=== PATIENT | female | born 1965 | race Caucasian/White ===

== ENCOUNTER 2017-02-15 16:50 | Emergency (ER) | payer SELFPAY ==
[~2017-02-15] VITALS: Ht 160 cm; Wt 101.7 kg
[~2017-02-15 16:50] MED LIST: LACT10SO9 PO; NA P133E23 RECTALLY; OMEP20TA2 PO; ONDA4TAB7 PO; OXYC10TA51 PO; SIME80TA12 PO; VENL150C2 PO; ZOLP10TA2 PO
--- OUTSIDE RECORDS SUMMARY | 2017-02-15 16:54 | XMS REPORT ---
Author Author Irene Souza [facility] eClinicalWorks Address Unknown Phone Unavailable Care Team Providers Care Timber Management Specialist Name Role Phone Irene Souza Unavailable Allergies No Known Allergies Problems Problem Type Condition Code Onset Dates Condition Status Assessment Insomnia, unspecified type G47.00 Active Assessment Abdominal distension R14.0 Active Assessment Restless leg syndrome, controlled G25.81 Active Assessment Cigarette smoker F17.210 Active Assessment Constipation, unspecified constipation type K59.00 Active Problem Constipation, unspecified constipation type K59.00 Active Problem Insomnia, unspecified type G47.00 Active Problem Restless leg syndrome, controlled G25.81 Active Problem Cigarette smoker F17.210 Active Assessment Chronic active hepatitis C K73.2 Active Problem Chronic active hepatitis C K73.2 Active Problem Abdominal distension R14.0 Active Medications Medication Code System Code Instructions Start Date End Date Status Dosage Vicoprofen [facility] [address]-42 7.5-200 MG Orally every 6 hrs 1 tablet as needed Harvoni [facility] [address]-92 90-400 MG Orally Once a day Jul 24, 2016Sep 1 tablet Venlafaxine HCl [facility] [address]-50 75 MG Orally Twice a day 1 tablet with food Ambien [facility] [address]-52 10 MG Orally Once a day 1 tablet at bedtime as needed Spironolactone [facility] [address]-45 100 MG Orally Once a day May 29, 2016 1 tablet Procedures Procedure Coding System Code Date COMPREHEN METABOLIC PANEL CPT-4 55612 Aug 01, 2016 HEPATITIS C, RNA, QUANT CPT-4 48062 Aug 01, 2016 COMPLETE BLOOD COUNT W/AUTO DIFF CPT-4 32173 Aug 01, 2016 Office Visit, Est Pt., Level 3 CPT-4 96136 Aug 01, 2016 Kindergarten Assistant 3-10 Min in ASX Smoker CPT-4 G0436 Aug 01, 2016 Vital Signs Date/Time: Aug 01, 2016 Temperature 96.9 F Weight 200 lbs Height 63.39 in Respiratory Rate 16 /min Cardiac Monitoring Heart Rate 98 /min Blood Pressure Diastolic 89 mm Hg Blood Pressure Systolic 144 mm Hg BMI 34.99 Index Oximetry 96 % Results Name Result Date Reference Range Unit Abnormality Flag Hepatitis C (HCV), Quant, Real-time PCR (Graph) 25443 ----Hepatitis C Quantitation 180 [id number] IU/mL ----HCV log10 2.255 [id number] log10 IU/mL CBC/Differential (No Platelet) ----Neutrophils (Absolute) 2.9 [id number] 1.4-7.0 x10E3/uL ----Immature Cells PLACEMENT ASSISTANT [id number] ----Monocytes(Absolute) 0.4 [id number] 0.1-0.9 x10E3/uL ----Lymphs (Absolute) 1.9 [id number] 0.7-3.1 x10E3/uL ----Neutrophils 55 15549537 % ----Baso (Absolute) 0.0 [id number] 0.0-0.2 x10E3/uL ----RDW 13.4 85355569 12.3-15.4 % ----Eos (Absolute) 0.0 [id number] 0.0-0.4 x10E3/uL ----MCHC 35.0 66996917 31.5-35.7 g/dL ----MCH 30.2 [id number] 26.6-33.0 pg ----MCV 86 35545269 79-97 fL ----Monocytes 8 52329608 % ----Lymphs 37 00563578 % ----Basos 0 46123364 % ----Eos 0 63066099 % ----Immature Granulocytes 0 17117361 % ----Immature Grans (Abs) 0.0 [id number] 0.0-0.1 x10E3/uL ----NRBC PLACEMENT ASSISTANT [id number] ----Hematology Comments: PLACEMENT ASSISTANT [id number] ----WBC 5.2 [id number] 3.4-10.8 x10E3/uL ----RBC 5.23 [id number] 3.77-5.28 x10E6/uL ----Hemoglobin 15.8 89902170 11.1-15.9 g/dL ----Hematocrit 45.1 87026227 34.0-46.6 % Metabolic Panel (14), Comprehensive ([facility]) 72220 ----Sodium, Serum 138 20160801 134-144 mmol/L ----BUN/Creatinine Ratio 9 20160801 9-23 ----Chloride, Serum 99 20160801 97-108 mmol/L ----Potassium, Serum 5.5 20160801 3.5-5.2 mmol/L H ----Calcium, Serum 10.8 20160801 8.7-10.2 mg/dL H ----Protein, Total, Serum 7.8 20160801 6.0-8.5 g/dL ----Carbon Dioxide, Total 20 20160801 18-29 mmol/L ----A/G Ratio 1.6 20160801 1.1-2.5 ----eGFR If NonAfricn Am 47 97054539 >59 mL/min/1.73 L ----Bilirubin, Total 0.4 20160801 0.0-1.2 mg/dL ----eGFR If Africn Am 54 [id number] >59 mL/min/1.73 L ----BUN 12 20160801 6-24 mg/dL ----Albumin, Serum 4.8 20160801 3.5-5.5 g/dL ----Globulin, Total 3.0 40729344 1.5-4.5 g/dL ----Creatinine, Serum 1.32 89693402 0.57-1.00 mg/dL H ----ALT (SGPT) 34 20160801 0-32 IU/L H ----Glucose, Serum 92 20160801 65-99 mg/dL ----Alkaline Phosphatase, S 96 20160801 39-117 IU/L ----AST (SGOT) 26 20160801 0-40 IU/L Summary Purpose eClinicalWorks Submission
--- OUTSIDE RECORDS SUMMARY | 2017-02-15 16:54 | XMS REPORT ---
Author Author Chris Dupont Organization eClinicalWorks Address Unknown Phone Unavailable Care Team Providers Care Retread Technician Name Role Phone Chris Dupont CP Unavailable Allergies No Known Allergies Problems Problem Type Condition Code Onset Dates Condition Status Problem Other malaise and fatigue 780.79 Active Problem Other and unspecified bipolar disorders 296.89 Active Problem Chronic hepatitis C without mention of hepatic coma 070.54 Active Problem Generalized anxiety disorder 300.02 Active Assessment Pain in thoracic spine M54.6 Active Medications Medication Code System Code Instructions Start Date End Date Status Dosage Vicoprofen [facility] [address]-95 7.5-200 MG Orally every 6 hrs 1 tablet as needed Zolpidem Tartrate [facility] [address]-89 10 MG Orally Once a day TAKE ONE TABLET BY MOUTH EVERY NIGHT AT BEDTIME TO LAST 30 DAYS Effexor XR [facility] [address]-96 150 MG Orally Once a day May 13, 2015 1 capsule with food Procedures Procedure Coding System Code Date COMPREHENSIVE METABOLIC PANEL CPT-4 24825 February 18, 2016 C-REACTIVE PROTEIN CPT-4 71838 February 18, 2016 COMPLETE CBC W/AUTO DIFF WBC CPT-4 08727 February 18, 2016 SED RATE CPT-4 95827 February 18, 2016 Results No Known Results Summary Purpose eClinicalWorks Submission
--- OUTSIDE RECORDS SUMMARY | 2017-02-15 16:54 | XMS REPORT | Referral Summary ---
Author Author [facility], Family Medicine Organization [facility] Address Unknown Phone Unavailable Care Team Providers Care Station Manager Name Role Phone Nakia Aldrich Primary Care Physician [phone] Encounter VC Date(s): 04/13/15 - 04/13/15 [facility], [address] [place] [phone] Discharge Disposition: 01-Home or Self Care Attending Physician: True Aldrich MD Admitting Physician: True Aldrich MD Vital Signs Most recent to 1 oldest [Reference Range]: Temperature Tympanic 36.9 degC [36.6-38.1 degC] (04/13/15 1:08 PM) Peripheral Pulse 92 bpm Rate [60-100 bpm] (04/13/15 1:08 PM) Respiratory Rate 16 br/min [14-20 br/min] (04/13/15 1:08 PM) Blood Pressure 136/96 mmHg [90-140/60-90 mmHg] (04/13/15 1:08 PM) Problem List Condition Effective Dates Status Health Status Informant Chronic hepatitis Active C(Confirmed) GERD Active (gastroesophageal reflux disease)(Confirmed) GERD(Confirmed) Resolved Hepatitis Resolved C(Confirmed) Insomnia(Confirmed) Resolved Obesity(Confirmed) Active patient Chronic Active insomnia(Confirmed) Acquired pes Active planus(Confirmed) Pes Resolved Planus(Confirmed) Allergies, Adverse Reactions, Alerts Substance Reaction Severity Status sulfaSALAzine HIVES Active Medications Ambien 10 mg, Oral, Bedtime (once a day), 0 Refill(s) Start Date: 04/28/14 Status: Ordered metoprolol tartrate 25 mg oral tablet 1 tabs, Oral, BID, Anxiety, # 20 tabs, 1 Refill(s), Pharmacy: [facility] # [id number] Start Date: 02/02/15 Stop Date: 04/03/15 Status: Ordered [place] 7.5 mg-325 mg oral tablet 1 tabs, Oral, QID, as needed for pain, # 120 tabs, 0 Refill(s) Start Date: 10/18/15 Stop Date: 11/17/15 Status: Ordered zolpidem 10 mg oral tablet 1 tabs, Oral, Bedtime (once a day), as needed for sleep, # 30 tabs, 0 Refill(s) Start Date: 10/26/14 Status: Ordered Results No data available for this section Immunizations No data available for this section Procedures No data available for this section Social History Social History Type Response Smoking Status Current every day smoker; Type: Cigarettes; Tobacco use per day: Less than Pack Assessment and Plan Extracted from: Title: Office Visit Note Author: True Aldrich MD Date: 04/13/15 Assessment/Plan Chronic hepatitis C Constipation Plan: I think you should start on meta mucil daily for your constipation. I am setting you up to see Dr. Catalan for your hep C.
--- OUTSIDE RECORDS SUMMARY | 2017-02-15 16:54 | XMS REPORT ---
Author Author Cathleen Das [facility] eClinicalWorks Address Unknown Phone Unavailable Care Team Providers Care Paralegal Legal Secretary Name Role Phone Cathleen Das CP Unavailable Allergies No Known Allergies Problems Problem Type Condition Code Onset Dates Condition Status Problem Other and unspecified bipolar disorders 296.89 Active Problem Generalized anxiety disorder 300.02 Active Problem Chronic active hepatitis C K73.2 Active Problem Bipolar II disorder F31.81 Active Problem Chronic hepatitis C without hepatic coma B18.2 Active Problem Chronic hepatitis C without mention of hepatic coma 070.54 Active Problem Other malaise and fatigue 780.79 Active Problem Chronic viral hepatitis C B18.2 Active Problem Other fatigue R53.83 Active Medications Medication Code System Code Instructions Start Date End Date Status Dosage Effexor XR [facility] [address]-60 150 MG Orally Once a day May 13, 2015 1 capsule with food Results No Known Results Summary Purpose eClinicalWorks Submission
--- OUTSIDE RECORDS SUMMARY | 2017-02-15 16:54 | XMS REPORT ---
Author Author Irene Souza Organization eClinicalWorks Address Unknown Phone Unavailable Care Team Providers Care Guest Services Lead Name Role Phone Irene Souza CP Unavailable Allergies No Known Allergies Problems Problem Type Condition Code Onset Dates Condition Status Problem Abdominal distension R14.0 Active Problem Smoking F17.200 Active Problem Chronic active hepatitis C K73.2 Active Medications No Known Medications Results No Known Results Summary Purpose eClinicalWorks Submission
--- OUTSIDE RECORDS SUMMARY | 2017-02-15 16:54 | XMS REPORT ---
Author Author Cathleen Das [facility] eClinicalWorks Address Unknown Phone Unavailable Care Team Providers Care Export Agent Name Role Phone Cathleen Das CP Unavailable Allergies No Known Allergies Problems Problem Type Condition ICD-9 Code Onset Dates Condition Status Problem Other malaise and fatigue 780.79 Active Problem Other and unspecified bipolar disorders 296.89 Active Problem Chronic hepatitis C without mention of hepatic coma 070.54 Active Problem Generalized anxiety disorder 300.02 Active Assessment Other and unspecified bipolar disorders 296.89 Active Medications Medication Code System Code Instructions Start Date End Date Status Dosage Zolpidem Tartrate [facility] [address]-35 10 MG Orally Once a day TAKE ONE TABLET BY MOUTH AT BEDTIME Results No Known Results Summary Purpose eClinicalWorks Submission
--- OUTSIDE RECORDS SUMMARY | 2017-02-15 16:54 | XMS REPORT ---
Author Author Holly Moura Organization eClinicalWorks Address Unknown Phone Unavailable Care Team Providers Care Platform Loader Name Role Phone Holly Moura CP Unavailable Allergies, Adverse Reactions, Alerts Substance Reaction Event Type Sulfa anaphylaxis Drug Allergy Problems Problem Type Condition Code Onset Dates Condition Status Problem Other malaise and fatigue 780.79 Active Problem Other and unspecified bipolar disorders 296.89 Active Problem Chronic hepatitis C without mention of hepatic coma 070.54 Active Problem Generalized anxiety disorder 300.02 Active Assessment Periapical abscess without sinus K04.7 Active Medications Medication Code System Code Instructions Start Date End Date Status Dosage Effexor XR [facility] [address]-93 150 MG Orally Once a day May 13, 2015 1 capsule with food Ibuprofen [facility] [address]-11 200 MG Orally every 6 hrs 3 tablets Zolpidem Tartrate [facility] [address]-45 10 Orally Once a day TAKE ONE TABLET BY MOUTH AT BEDTIME [place] [facility] [address]-13 7.5-325 MG Orally every 6 hrs 1 tablet as needed Penicillin V Potassium [facility] [address]-36 250 MG Orally 4 times a day AugAug 16, 2015 1 tablet Procedures Procedure Coding System Code Date IRRIGATION SYRINGE BULB/PISTON EACH CPT-4 A4322 Aug 09, 2015 OFFICE VISIT, EST-LOW COMPLEXITY (10 MIN.) CPT-4 59130 Aug 09, 2015 Vital Signs Date/Time: Aug 09, 2015 Height 65 in Weight 193.4 lbs Temperature 97.9 F Blood Pressure Diastolic 90 mm Hg Blood Pressure Systolic 152 mm Hg Cardiac Monitoring Heart Rate 100 /min BMI 32.18 Index Respiratory Rate 18 /min Results No Known Results Summary Purpose eClinicalWorks Submission
--- OUTSIDE RECORDS SUMMARY | 2017-02-15 16:54 | XMS REPORT ---
Author Author Cathleen Das [facility] eClinicalWorks Address Unknown Phone Unavailable Care Team Providers Care Cut Off Man Name Role Phone Cathleen Das CP Unavailable Allergies No Known Allergies Problems Problem Type Condition ICD-9 Code Onset Dates Condition Status Problem Other malaise and fatigue 780.79 Active Problem Other and unspecified bipolar disorders 296.89 Active Problem Chronic hepatitis C without mention of hepatic coma 070.54 Active Problem Generalized anxiety disorder 300.02 Active Medications Medication Code System Code Instructions Start Date End Date Status Dosage Amoxicillin [facility] [address]-30 500 MG Orally every 8 hrs 2014 Sep 08, 2014 Active 1 capsule Vital Signs Date/Time: Aug 25, 2014 Height 65 inches Weight 175.50 lbs Temperature 98.2 F Blood Pressure Diastolic 74 mm Hg Blood Pressure Systolic 124 mm Hg Cardiac Monitoring Heart Rate 84 Beats per Minute BMI 29.20 Index Respiratory Rate 14 per Minute Results No Known Results Summary Purpose eClinicalWorks Submission
--- OUTSIDE RECORDS SUMMARY | 2017-02-15 16:54 | XMS REPORT ---
Author Author Cathleen Das [facility] eClinicalWorks Address Unknown Phone Unavailable Care Team Providers Care Job Development Specialist Name Role Phone Cathleen Das CP Unavailable Allergies No Known Allergies Problems Problem Type Condition ICD-9 Code Onset Dates Condition Status Problem Other malaise and fatigue 780.79 Active Problem Other and unspecified bipolar disorders 296.89 Active Problem Chronic hepatitis C without mention of hepatic coma 070.54 Active Problem Generalized anxiety disorder 300.02 Active Medications No Known Medications Results No Known Results Summary Purpose eClinicalWorks Submission
--- OUTSIDE RECORDS SUMMARY | 2017-02-15 16:54 | XMS REPORT ---
Author Author Cathleen Das [facility] eClinicalWorks Address Unknown Phone Unavailable Care Team Providers Care Manufacturing Group Leader Name Role Phone Cathleen Das CP Unavailable Allergies, Adverse Reactions, Alerts Substance Reaction Event Type Sulfa anaphylaxis Drug Allergy Problems Problem Type Condition Code Onset Dates Condition Status Problem Other malaise and fatigue 780.79 Active Problem Other and unspecified bipolar disorders 296.89 Active Problem Chronic hepatitis C without mention of hepatic coma 070.54 Active Problem Generalized anxiety disorder 300.02 Active Assessment Congenital pes planus, 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 09474550497 10 TAKE ONE TABLET BY MOUTH EVERY NIGHT AT BEDTIME TO LAST 30 DAYS Effexor XR [facility] [address]-91 150 MG Orally Once a day May 13, 2015 1 capsule with food Ibuprofen [facility] [address]-10 200 MG Orally every 6 hrs 3 tablets Vicoprofen [facility] [address]-28 7.5-200 MG Orally every 6 hrs Nov 15, 2015 Dec 15, 2015 1 tablet as needed Procedures Procedure Coding System Code Date OFFICE VISIT, EST-LOW COMPLEXITY (15 MIN.) CPT-4 10056 Nov 15, 2015 Vital Signs Date/Time: Nov 15, 2015 Height 65 in Weight 208.8 lbs Temperature 97.8 F Blood Pressure Diastolic 97 mm Hg Blood Pressure Systolic 161 mm Hg Cardiac Monitoring Heart Rate 97 /min BMI 34.74 Index Respiratory Rate 22 /min Results No Known Results Summary Purpose eClinicalWorks Submission
--- OUTSIDE RECORDS SUMMARY | 2017-02-15 16:54 | XMS REPORT ---
Author Author Cathleen Das [facility] eClinicalWorks Address Unknown Phone Unavailable Care Team Providers Care Park Services Specialist Name Role Phone Cathleen Das CP [...]
--- OUTSIDE RECORDS SUMMARY | 2017-02-15 16:54 | XMS REPORT ---
Author Author Cathleen Das [facility] eClinicalWorks Address Unknown Phone Unavailable Care Team Providers Care Social Security Specialist Name Role Phone Cathleen Das CP [...] Date End Date Status Dosage Effexor XR [facility] [address]-31 150 MG Orally Once a day May 13, 2015 1 capsule with food Results No Known Results Summary Purpose eClinicalWorks Submission
--- OUTSIDE RECORDS SUMMARY | 2017-02-15 16:54 | XMS REPORT ---
Author Author Irene Souza [facility] Address [address], [place] [id number] Care Team Providers Care Dietary Supervisor Name Role Phone Irene Souza Unavailable [phone] PROBLEMS Type Condition ICD9-CM Code YWD30-FN Code Onset Dates Condition Status SNOMED Code Problem Cigarette smoker F17.210 Active 45090544 Problem Primary insomnia F51.01 well-controlled 9809120 Problem Drug induced constipation K59.03 Active 481291287883868 Problem Restless leg syndrome, controlled G25.81 Active 98288818 Problem Abdominal distension R14.0 Active 30275235 Problem Chronic hepatitis C without mention of hepatic coma B18.2 Active 908604957 Problem Other ascites R18.8 Active 128094964 ALLERGIES Unknown Allergies SOCIAL HISTORY No smoking Hx information available PLAN OF CARE VITAL SIGNS MEDICATIONS Unknown Medications RESULTS No Results PROCEDURES No Known procedures IMMUNIZATIONS No Known Immunizations
--- OUTSIDE RECORDS SUMMARY | 2017-02-15 16:54 | XMS REPORT ---
Author Author Kristine Jaimes [facility] eClinicalWorks Address Unknown Phone Unavailable Care Team Providers Care Medical Stenographer Name Role Phone Kristine Jaimes CP Unavailable Allergies, Adverse Reactions, Alerts Substance Reaction Event Type Sulfa anaphylaxis Drug Allergy Problems Problem Type Condition ICD-9 Code Onset Dates Condition Status Problem Other malaise and fatigue 780.79 Active Problem Other and unspecified bipolar disorders 296.89 Active Problem Chronic hepatitis C without mention of hepatic coma 070.54 Active Assessment Generalized anxiety disorder 300.02 Active Problem Generalized anxiety disorder 300.02 Active Assessment Other and unspecified bipolar disorders 296.89 Active Medications Medication Code System Code Instructions Start Date End Date Status Dosage Zolpidem Tartrate [facility] [address]-88 10 Active TAKE ONE TABLET BY MOUTH AT BEDTIME Ibuprofen [facility] [address]-28 200 MG Orally every 6 hrs Active 3 tablets Venlafaxine HCl [facility] [address]-71 75 Active TAKE ONE TABLET BY MOUTH TWICE A DAY WITH FOOD FOR MOOD AND ANXIETY [place] [facility] [address]-04 7.5-325 MG Orally every 6 hrs Active 1 tablet as needed Procedures Procedure Coding System Code Date OFFICE VISIT, EST-MOD. COMPLEXITY (25 MIN) CPT-4 72058 Oct 13, 2014 Vital Signs Date/Time: Oct 13, 2014 Height 65 inches Weight 175.50 lbs Temperature 98.7 F Blood Pressure Diastolic 76 mm Hg Blood Pressure Systolic 132 mm Hg Cardiac Monitoring Heart Rate 88 Beats per Minute BMI 29.20 Index Respiratory Rate 16 per Minute Results No Known Results Summary Purpose eClinicalWorks Submission
--- OUTSIDE RECORDS SUMMARY | 2017-02-15 16:54 | XMS REPORT ---
Author Author Irene Souza Organization eClinicalWorks Address Unknown Phone Unavailable Care Team Providers Care Trade Embalmer Name Role Phone Irene Souza CP Unavailable Allergies No Known Allergies Problems Problem Type Condition Code Onset Dates Condition Status Problem Abdominal distension R14.0 Active Problem Smoking F17.200 Active Problem Chronic active hepatitis C K73.2 Active Medications No Known Medications Results No Known Results Summary Purpose eClinicalWorks Submission
--- OUTSIDE RECORDS SUMMARY | 2017-02-15 16:54 | XMS REPORT ---
Author Author Cathleen Das [facility] eClinicalWorks Address Unknown Phone Unavailable Care Team Providers Care Assembler Flexible Leads Name Role Phone Cathleen Das CP Unavailable Allergies No Known Allergies Problems Problem Type Condition ICD-9 Code Onset Dates Condition Status Problem Other malaise and fatigue 780.79 Active Problem Other and unspecified bipolar disorders 296.89 Active Problem Chronic hepatitis C without mention of hepatic coma 070.54 Active Problem Generalized anxiety disorder 300.02 Active Medications No Known Medications Vital Signs Date/Time: Aug 25, 2014 Height 65 inches Weight 175.50 lbs Temperature 98.2 F Blood Pressure Diastolic 74 mm Hg Blood Pressure Systolic 124 mm Hg Cardiac Monitoring Heart Rate 84 Beats per Minute BMI 29.20 Index Respiratory Rate 14 per Minute Results No Known Results Summary Purpose eClinicalWorks Submission
--- OUTSIDE RECORDS SUMMARY | 2017-02-15 16:54 | XMS REPORT ---
Author Author Cathleen Das [facility] eClinicalWorks Address Unknown Phone Unavailable Care Team Providers Care Vending Machine Refiller Name Role Phone Cathleen Das CP Unavailable [...] Start Date End Date Status Dosage Vicoprofen [facility] [address]-85 7.5-200 MG Orally. Can be filled 09/02/16 every 6 hrs Aug 29, 2016 Sep 28, 2016 1 tablet as needed Results No Known Results Summary Purpose eClinicalWorks Submission
--- OUTSIDE RECORDS SUMMARY | 2017-02-15 16:54 | XMS REPORT ---
Author Author Cathleen Das [facility] eClinicalWorks Address Unknown Phone Unavailable Care Team Providers Care Civil Drafter Name Role Phone Cathleen Das CP Unavailable Allergies No Known Allergies Problems Problem Type Condition Code Onset Dates Condition Status Problem Chronic viral hepatitis C B18.2 Active Problem Other fatigue R53.83 Active Problem Bipolar II disorder F31.81 Active Problem Other and unspecified bipolar disorders 296.89 Active Problem Generalized anxiety disorder 300.02 Active Problem Chronic hepatitis C without mention of hepatic coma 070.54 Active Problem Other malaise and fatigue 780.79 Active Medications Medication Code System Code Instructions Start Date End Date Status Dosage Lactulose [facility] [address]-51 10 GM/15ML Orally BID May 22, 2016 Sep 19, 2016 1 packet mixed with 4 ounces of water Results No Known Results Summary Purpose eClinicalWorks Submission
--- OUTSIDE RECORDS SUMMARY | 2017-02-15 16:54 | XMS REPORT ---
Author Author Cathleen Das [facility] eClinicalWorks Address Unknown Phone Unavailable Care Team Providers Care Petal Shaper Hand Name Role Phone Cathleen Das CP Unavailable Allergies No Known Allergies Problems Problem Type Condition Code Onset Dates Condition Status Problem Other malaise and fatigue 780.79 Active Problem Other and unspecified bipolar disorders 296.89 Active Problem Chronic hepatitis C without mention of hepatic coma 070.54 Active Problem Generalized anxiety disorder 300.02 Active Assessment Dysuria R30.0 Active Medications Medication Code System Code Instructions Start Date End Date Status Dosage Nitrofurantoin Macrocrystal [facility] [address]-70 100 MG Orally BID February 22, 2016 February 27, 2016 1 capsule with food or milk Effexor XR [facility] [address]-95 150 MG Orally Once a day May 13, 2015 1 capsule with food Vicoprofen [facility] [address]-94 7.5-200 MG Orally every 6 hrs 1 tablet as needed Zolpidem Tartrate [facility] [address]-17 10 MG Orally Once a day TAKE ONE TABLET BY MOUTH EVERY NIGHT AT BEDTIME TO LAST 30 DAYS Procedures Procedure Coding System Code Date URINE CULTURE CPT-4 33435 February 22, 2016 Results No Known Results Summary Purpose eClinicalWorks Submission
--- OUTSIDE RECORDS SUMMARY | 2017-02-15 16:55 | XMS REPORT ---
Author Author Cathleen Das [facility] eClinicalWorks Address Unknown Phone Unavailable Care Team Providers Care Cutting And Splicing Supervisor Name Role Phone Cathleen Das CP Unavailable Allergies, Adverse Reactions, Alerts Substance Reaction Event Type Sulfa anaphylaxis Drug Allergy Problems Problem Type Condition Code Onset Dates Condition Status Assessment Bipolar II disorder F31.81 Active Assessment Constipation, unspecified constipation type K59.00 Active Assessment Generalized abdominal pain R10.84 Active Assessment Other fatigue R53.83 Active Assessment Chronic viral hepatitis C B18.2 Active Problem Chronic viral hepatitis C B18.2 [...] Start Date End Date Status Dosage Vicoprofen [facility] [address]-64 7.5-200 MG Orally every 6 hrs May 26, 2016 1 tablet as needed Zolpidem Tartrate [facility] [address]-37 10 MG Orally Once a day TAKE ONE TABLET BY MOUTH EVERY NIGHT AT BEDTIME TO LAST 30 DAYS Effexor XR [facility] [address]-02 150 MG Orally Once a day May 13, 2015 1 capsule with food Procedures Procedure Coding System Code Date OFFICE VISIT, EST-LOW COMPLEXITY (15 MIN.) CPT-4 42129 May 15, 2016 Vital Signs Date/Time: May 15, 2016 Temperature 98.3 F Height 65 in Weight 203.8 lbs Blood Pressure Diastolic 90 mm Hg Blood Pressure Systolic 140 mm Hg Cardiac Monitoring Heart Rate 96 /min BMI 33.91 Index Respiratory Rate 20 /min Results Name Result Date Reference Range Unit Abnormality Flag X ray : Abdomen, Kidneys, Ureters, and Bladder (KUB) with upright films Summary Purpose eClinicalWorks Submission
--- OUTSIDE RECORDS SUMMARY | 2017-02-15 16:55 | XMS REPORT ---
Author Author Cathleen Das [facility] eClinicalWorks Address Unknown Phone Unavailable Care Team Providers Care Research Center Partner Name Role Phone Cathleen Das CP Unavailable [...]
--- OUTSIDE RECORDS SUMMARY | 2017-02-15 16:55 | XMS REPORT ---
Author Author Cathleen Das [facility] eClinicalWorks Address Unknown Phone Unavailable Care Team Providers Care Rug Touch Up Painter Name Role Phone Cathleen aDs CP Unavailable Allergies No Known Allergies Problems Problem Type Condition Code Onset Dates Condition Status Assessment Generalized abdominal pain R10.84 Active Assessment Chronic viral hepatitis C B18.2 [...] Start Date End Date Status Dosage Vicoprofen [facility] [address]-23 7.5-200 MG Orally every 6 hrs May 26, 2016 1 tablet as needed Zolpidem Tartrate [facility] [address]-77 10 MG Orally Once a day TAKE ONE TABLET BY MOUTH EVERY NIGHT AT BEDTIME TO LAST 30 DAYS Effexor XR [facility] [address]-31 150 MG Orally Once a day May 13, 2015 1 capsule with food Procedures Procedure Coding System Code Date TSH CPT-4 46595 May 16, 2016 AMYLASE, SERUM CPT-4 76977 May 16, 2016 COMPREHENSIVE METABOLIC PANEL CPT-4 82927 May 16, 2016 HEPATITIS C GENOTYPE #2 CPT-4 82489 May 16, 2016 HEPATITIS C GENOTYPE #1 CPT-4 95607 May 16, 2016 IRON PROFILE 2 CPT-4 24801 May 16, 2016 GGT CPT-4 64678 May 16, 2016 LIPASE CPT-4 44154 May 16, 2016 IRON PROFILE 1 CPT-4 25085 May 16, 2016 Results No Known Results Summary Purpose eClinicalWorks Submission
--- OUTSIDE RECORDS SUMMARY | 2017-02-15 16:55 | XMS REPORT ---
Author Author Cathleen Das [facility] eClinicalWorks Address Unknown Phone Unavailable Care Team Providers Care Radiology Supervisor Name Role Phone Cathleen Das CP [...] Date End Date Status Dosage Zolpidem Tartrate [facility] [address]-88 10 MG Orally Once a day TAKE ONE TABLET BY MOUTH EVERY NIGHT AT BEDTIME TO LAST 30 DAYS Results No Known Results Summary Purpose eClinicalWorks Submission
--- OUTSIDE RECORDS SUMMARY | 2017-02-15 16:55 | XMS REPORT ---
Author Author Cathleen Das [facility] eClinicalWorks Address Unknown Phone Unavailable Care Team Providers Care Balancer Scale Name Role Phone Cathleen Das CP Unavailable [...] Instructions Start Date End Date Status Dosage Venlafaxine HCl [facility] [address]-48 75 MG Orally Twice a day TAKE ONE TABLET BY MOUTH TWICE A DAY WITH FOOD FOR MOOD AND ANXIETY Results No Known Results Summary Purpose eClinicalWorks Submission
--- OUTSIDE RECORDS SUMMARY | 2017-02-15 16:55 | XMS REPORT ---
Author Author Cathleen Das [facility] eClinicalWorks Address Unknown Phone Unavailable Care Team Providers Care Wallcovering Texturer Name Role Phone Cathleen Das CP Unavailable [...] Instructions Start Date End Date Status Dosage Zofrmaciel T [facility] [address]-82 4 MG Orally 3 Times a day prn Jun 06, 2016 as directed Results No Known Results Summary Purpose eClinicalWorks Submission
--- OUTSIDE RECORDS SUMMARY | 2017-02-15 16:55 | XMS REPORT ---
Author Author Yamilka Summers [facility] eClinicalWorks Address Unknown Phone Unavailable Care Team Providers Care Mortgage Coordinator Name Role Phone Yamilka Summers CP Unavailable Allergies No Known Allergies Problems Problem Type Condition Code Onset Dates Condition Status Assessment Encounter for consultation Z71.9 Active Problem Other and unspecified bipolar disorders 296.89 Active Problem Generalized anxiety disorder 300.02 Active Assessment Chronic viral hepatitis C B18.2 Active Problem Chronic active hepatitis C K73.2 [...] Date End Date Status Dosage Effexor XR [facility] [address]-51 150 MG Orally Once a day May 13, 2015 1 capsule with food Vicoprofen [facility] [address]-49 7.5-200 MG Orally every 6 hrs May 26, 2016 1 tablet as needed Lactulose [facility] [address]-93 10 GM/15ML Orally BID May 22, 2016 Sep 19, 2016 1 packet mixed with 4 ounces of water Zolpidem Tartrate [facility] [address]-62 10 MG Orally Once a day TAKE ONE TABLET BY MOUTH EVERY NIGHT AT BEDTIME TO LAST 30 DAYS Results No Known Results Summary Purpose eClinicalWorks Submission
--- OUTSIDE RECORDS SUMMARY | 2017-02-15 16:55 | XMS REPORT ---
Author Author Cathleen Das [facility] eClinicalWorks Address Unknown Phone Unavailable Care Team Providers Care Diesel Scoop Operator Name Role Phone Cathleen Das CP Unavailable [...] Start Date End Date Status Dosage Vicoprofen [facility] [address]-36 7.5-200 MG Orally every 6 hrs March 25, 2016 1 tablet as needed Results No Known Results Summary Purpose eClinicalWorks Submission
--- OUTSIDE RECORDS SUMMARY | 2017-02-15 16:55 | XMS REPORT ---
Author Author Cathleen Das [facility] eClinicalWorks Address Unknown Phone Unavailable Care Team Providers Care Vertical Borer Name Role Phone Cathleen Das CP Unavailable Allergies, Adverse Reactions, Alerts Substance Reaction Event Type Sulfa anaphylaxis Drug Allergy Problems Problem Type Condition ICD-9 Code Onset Dates Condition Status Assessment Shortness of breath 786.05 Active Problem Other malaise and fatigue 780.79 Active Problem Other and unspecified bipolar disorders 296.89 Active Problem Chronic hepatitis C without mention of hepatic coma 070.54 Active Assessment Lump or mass in breast 611.72 Active Assessment Acute sinusitis, unspecified 461.9 Active Problem Generalized anxiety disorder 300.02 Active Assessment Chest pain, other 786.59 Active Medications Medication Code System Code Instructions Start Date End Date Status Dosage Venlafaxine HCl [facility] [address]-09 75 Active TAKE ONE TABLET BY MOUTH TWICE A DAY WITH FOOD FOR MOOD AND ANXIETY Ibuprofen [facility] [address]-46 200 MG Orally every 6 hrs Active 3 tablets Amoxicillin [facility] [address]-79 500 MG Orally every 12 hrs Jun 29, 2014 Jul 09, 2014 Active 1 tablet Zolpidem Tartrate [facility] [address]-42 10 Active TAKE ONE TABLET BY MOUTH AT BEDTIME [employer] [facility] [address]-62 7.5-325 MG Orally every 6 hrs Active 1 tablet as needed Procedures Procedure Coding System Code Date OFFICE VISIT, EST-LOW COMPLEXITY (15 MIN.) CPT-4 58373 Sep 29, 2014 Vital Signs Date/Time: Sep 29, 2014 Height 65 inches Weight 172.8 lbs Temperature 98.1 F Blood Pressure Diastolic 88 mm Hg Blood Pressure Systolic 132 mm Hg Cardiac Monitoring Heart Rate 86 Beats per Minute BMI 28.75 Index Respiratory Rate 16 per Minute Results Name Result Date Reference Range Unit Chest X-ray PA and lateral Mammogram, right breast Summary Purpose eClinicalWorks Submission
--- OUTSIDE RECORDS SUMMARY | 2017-02-15 16:55 | XMS REPORT ---
Author Author Cathleen Das [facility] eClinicalWorks Address Unknown Phone Unavailable Care Team Providers Care Bookkeeping Clerk Name Role Phone Cathleen Das CP Unavailable [...] Active Problem Other fatigue R53.83 Active Medications No Known Medications Results No Known Results Summary Purpose eClinicalWorks Submission
--- OUTSIDE RECORDS SUMMARY | 2017-02-15 16:55 | XMS REPORT ---
Author Author Yamilka Summers [facility] eClinicalWorks Address Unknown Phone Unavailable Care Team Providers Care Cardiopulmonary Technologist Name Role Phone Yamilka Summers CP Unavailable Allergies No Known Allergies Problems Problem Type Condition Code Onset Dates Condition Status Problem Generalized anxiety disorder 300.02 Active Problem Other malaise and fatigue 780.79 Active Problem Other and unspecified bipolar disorders 296.89 Active Assessment Encounter for consultation Z71.9 Active Assessment Anxiety disorder, unspecified F41.9 Active Problem Chronic hepatitis C without hepatic coma B18.2 Active Problem Chronic active hepatitis C K73.2 Active Problem Anxiety disorder, unspecified F41.9 Active Problem Other fatigue R53.83 Active Problem Chronic hepatitis C without mention of hepatic coma 070.54 Active Problem Bipolar II disorder F31.81 Active Problem Chronic viral hepatitis C B18.2 Active Medications No Known Medications Results No Known Results Summary Purpose eClinicalWorks Submission
--- OUTSIDE RECORDS SUMMARY | 2017-02-15 16:55 | XMS REPORT ---
Author Author Irene Souza Organization eClinicalWorks Address Unknown Phone Unavailable Care Team Providers Care Premises Technician Name Role Phone Irene Souza CP Unavailable Allergies, Adverse Reactions, Alerts Substance Reaction Event Type Sulfacet-R Info Not Available Drug Allergy Problems Problem Type Condition Code Onset Dates Condition Status Problem Abdominal distension R14.0 Active Problem Smoking F17.200 Active Problem Chronic active hepatitis C K73.2 Active Assessment Smoking F17.200 Active Assessment Chronic active hepatitis C K73.2 Active Assessment Abdominal distension R14.0 Active Medications Medication Code System Code Instructions Start Date End Date Status Dosage Oxycodone HCl [facility] [address]-98 10 MG Orally every 6 hrs 1 tablet as needed Venlafaxine HCl [facility] [address]-52 75 MG Orally Twice a day 1 tablet with food Spironolactone [facility] [address]-01 100 MG Orally Once a day May 29, [address] [facility] [address]-86 10 MG Orally Once a day 1 tablet at bedtime as needed Procedures Procedure Coding System Code Date Office Visit, New Pt., Level 3 CPT-4 03705 May 29, 2016 INF AB EIA TECH HIV-1 &/OR HIV-2 CPT-4 G0432 May 29, 2016 Vital Signs Date/Time: May 29, 2016 Temperature 97.9 F Weight 202 lbs Height 63.39 in Respiratory Rate 18 /min Cardiac Monitoring Heart Rate 90 /min Blood Pressure Diastolic 106 mm Hg Blood Pressure Systolic 182 mm Hg BMI 35.34 Index Oximetry 97 % Results No Known Results Summary Purpose eClinicalWorks Submission
--- OUTSIDE RECORDS SUMMARY | 2017-02-15 16:55 | XMS REPORT ---
Author Author Cathleen Das [facility] eClinicalWorks Address Unknown Phone Unavailable Care Team Providers Care Back End Engineer Name Role Phone Cathleen Das CP Unavailable [...] Other malaise and fatigue 780.79 Active Medications No Known Medications Results No Known Results Summary Purpose eClinicalWorks Submission
--- OUTSIDE RECORDS SUMMARY | 2017-02-15 16:55 | XMS REPORT ---
Author Author Cathleen Das [facility] eClinicalWorks Address Unknown Phone Unavailable Care Team Providers Care Women'S Health Care Nurse Practitioner Name Role Phone Cathleen Das CP Unavailable Allergies No Known Allergies Problems Problem Type Condition Code Onset Dates Condition Status Problem Generalized anxiety disorder 300.02 Active Problem Other malaise and fatigue 780.79 Active Problem Other and unspecified bipolar disorders 296.89 Active Problem Chronic hepatitis C without hepatic coma B18.2 Active Problem Chronic active hepatitis C K73.2 Active Problem Anxiety disorder, unspecified F41.9 Active Problem Other fatigue R53.83 Active Problem Chronic hepatitis C without mention of hepatic coma 070.54 Active Problem Bipolar II disorder F31.81 Active Problem Chronic viral hepatitis C B18.2 Active Medications Medication Code System Code Instructions Start Date End Date Status Dosage Vicoprofen [facility] [address]-18 7.5-200 MG Orally. Can be filled 09/02/16 every 6 hrs Aug 29, 2016 Sep 28, 2016 1 tablet as needed Zolpidem Tartrate [facility] [address]-85 10 MG Orally Once a day TAKE ONE TABLET BY MOUTH EVERY NIGHT AT BEDTIME TO LAST 30 DAYS Results No Known Results Summary Purpose eClinicalWorks Submission
--- OUTSIDE RECORDS SUMMARY | 2017-02-15 16:55 | XMS REPORT ---
Author Author Cathleen Das [facility] eClinicalWorks Address Unknown Phone Unavailable Care Team Providers Care Padder Name Role Phone Cathleen Das CP Unavailable Allergies, Adverse Reactions, Alerts Substance Reaction Event Type Sulfa anaphylaxis Drug Allergy Problems Problem Type Condition Code Onset Dates Condition Status Assessment Constipation, unspecified constipation type K59.00 Active Assessment Chronic viral hepatitis C B18.2 Active Assessment Right upper quadrant abdominal pain R10.11 Active Problem Chronic viral hepatitis C B18.2 [...] Start Date End Date Status Dosage Vicoprofen [facility] [address]-47 7.5-200 MG Orally every 6 hrs May 26, 2016 1 tablet as needed Effexor XR [facility] [address]-67 150 MG Orally Once a day May 13, 2015 1 capsule with food Zolpidem Tartrate [facility] [address]-51 10 MG Orally Once a day TAKE ONE TABLET BY MOUTH EVERY NIGHT AT BEDTIME TO LAST 30 DAYS Procedures Procedure Coding System Code Date OFFICE VISIT, EST-LOW COMPLEXITY (15 MIN.) CPT-4 70450 May 16, 2016 Vital Signs Date/Time: May 16, 2016 Temperature 98.3 F Height 65 in Weight 203.8 lbs Blood Pressure Diastolic 94 mm Hg Blood Pressure Systolic 150 mm Hg Cardiac Monitoring Heart Rate 90 /min BMI 33.91 Index Respiratory Rate 20 /min Results No Known Results Summary Purpose eClinicalWorks Submission
--- OUTSIDE RECORDS SUMMARY | 2017-02-15 16:55 | XMS REPORT ---
Author Author Cathleen Das [facility] eClinicalWorks Address Unknown Phone Unavailable Care Team Providers Care Wound/Ostomy Clinical Nurse Specialist Name Role Phone Cathleen Das CP [...]
--- OUTSIDE RECORDS SUMMARY | 2017-02-15 16:55 | XMS REPORT ---
Author Author Cathleen Das [facility] eClinicalWorks Address Unknown Phone Unavailable Care Team Providers Care Roofer Helper Name Role Phone Cathleen Das CP Unavailable [...] End Date Status Dosage Venlafaxine HCl [facility] [address]-22 75 MG Orally Twice a day TAKE ONE TABLET BY MOUTH TWICE A DAY WITH FOOD FOR MOOD AND ANXIETY *pt. needs appointment before next refill* Results No Known Results Summary Purpose eClinicalWorks Submission
--- OUTSIDE RECORDS SUMMARY | 2017-02-15 16:55 | XMS REPORT ---
Author Author Cathleen Das [facility] eClinicalWorks Address Unknown Phone Unavailable Care Team Providers Care Solder Deposit Operator Name Role Phone Cathleen Das CP [...]
--- OUTSIDE RECORDS SUMMARY | 2017-02-15 16:55 | XMS REPORT | Continuity of Care Document ---
Author Author [facility] Organization [facility] Address Unknown Phone Unavailable Support Name Relationship Address Phone ENOCH PLUNKETT MD Caregiver [address] [place] [address] Unavailable CATHLEEN GOLDBERG ADVERTISING DISPLAY ROTATOR Caregiver [address] [place] [address] Unavailable TONI RAMÍREZ DO Caregiver [address] [place] [address] Unavailable TONI RAMÍREZ DO Caregiver [address] [place] [address] Unavailable GEOVAN[place] [address] Insurance Providers Guarantor Sun Almodovar Address [address] [place] [address] Email [email or web address] Payer Self Pay Subscriber's Name Sun Almodovar Relationship 18 Self Advance Directives Directive Response Recorded Date/Time Ordered Resuscitation Status Full Code 05/25/16 9:42pm Resuscitation Documents on File No 05/25/16 10:33pm DPOA for Healthcare Only No 05/25/16 10:33pm Living Will No 05/25/16 10:33pm Problems Active Problems Medical Problem Onset Date Status Flank pain Unknown Acute Ureteral colic Unknown Acute Past Problems Medical Problem Onset Date Abdominal pain Unknown Anorexia Unknown Hepatitis C Unknown Medications Current Home Medications Medication Dose Units Route Directions Days Qty Instructions Start Date Lactulose 20 Gm/30 Ml Solution 10 Gm Oral Daily as needed for Constipation 30 Days 1 05/26/16 Na Phos,M-B/Na Phos,Di-Ba (Fleet Enema) 133 Ml Enema 1 Enema Rectally Daily as needed for Constipation 7 Days 7 Enema 05/26/16 Omeprazole Magnesium (Prilosec Otc) 20 Mg Tablet. 1 Tab Oral Twice A Day for Acid Reflux 30 Days 60 Tablet 05/26/16 Ondansetron (Zofran Odt) 4 Mg Tab.rapdis 4 Mg Oral Q6h/0300,0900,1500,2100 as needed for Nausea &/Or Vomiting 30 Days 120 Tablet Oral disintegrating tablet 05/26/16 Oxycodone Hcl 10 Mg Tablet 10 Mg Oral Every 6 Hours as needed for Pain 30 Days 05/26/16 Simethicone 80 Mg Tab.chew 80 Mg Oral Four Times Daily as needed for Gas 14 Days 56 05/26/16 Venlafaxine Hcl (Effexor Xr) 150 Mg Cap.er.24h 150 Mg Oral Daily 02/23/16 Zolpidem Tartrate (Ambien) 10 Mg Tablet 10 Mg Oral Bedtime Past Home Medications Medication Directions Ordered Status Hydrocodone/Ibuprofen (Vicoprofen 200-7.5 Mg Tab) 1 Each Tablet, 1 Tab Oral Every 6 Hours 02/23/16 Discontinued Social History Social History Problem Response Recorded Date/Time Onset Date Status Hx Substance Use No 05/25/2016 8:19pm Not Applicable Not Applicable Hx Alcohol Use No 05/25/2016 8:19pm Not Applicable Not Applicable Has the pt used tobacco in the last 12 months Yes 05/25/2016 10:54pm Not Applicable Not Applicable Tobacco Usage none 05/26/2016 12:13am Not Applicable Not Applicable Query Response Start Date Stop Date Smoking Status Current every day smoker Hospital Discharge Instructions Instructions: Care Instructions: Reason for Hospitalization: abdominal pain, dehydration I was in the hospital because (patient own words): The pain in the stomach. Feel very nauseous. Feel pain inside stomach. Discharge Diet: clear liquids and advance as tolerated. Discharge Activity: as tolerated Follow Up Appointments: -make patient a follow up appointment with Cathleen Goldberg, nurse practitioner at [facility] in 1 week with a cbc and cmp drawn the day before and sent to her. ICD 10 codes for this are R10.9 and E86.0. -patient is to keep her appointment with her physicians at the liver clinic. We have spoken with Irene Salmeron, nurse practitioner at this clinic and she will get patient in next week. Please set this up before the patient leaves today. Irene's phone number is [phone]. -all appointments with other providers remain the same. Pending Lab / Results: Follow up w/ your PCP Patient Instructions: -if you can't make your appointments or afford your medications then let us know right away. -if any issues worsen and/or new ones occur be seen immediately. Wound/Incision Care: not applicable. Durable Medical Equipment: not applicable. Notify Physician If: -return to care immediately if your intake of liquids and foods worsens, abdominal pain worsens, constipation worsens, nausea/vomiting occur. General Information: -discharge patient later today in stable and good condition when Dr. Ramírez gives the verbal order. -discontinue all lines, IV's and telemetry the patient didn't come in on. Condition at time of discharge: Good Plan of Care Discharge Date 05/26/16 7:05pm Disposition 01 DISCHARGED HOME, SELF-CARE Instructions/Education Provided DI for Abdominal Pain-Adult Prescriptions See Medication Section Additional Instructions/Education see the above. MAKE A FOLLOW UP APPOINTMENT WITH CATHLEEN GOLDBERG NURSE PRACTITIONER AT [facility] [phone].THEY WILL CALL YOU SUNDAY AND MAKE APPOINTMENT. SEE NEIL SALMERON NURSE PRACTITONER [phone] SEE May AT 3:20 PM [address] Care Plan and Goals See Discharge Instructions Section Functional Status Query Response Date Recorded Mobility Status Ambulatory May 26, 2016 2:17pm Assistive Devices None May 26, 2016 2:17pm Activity Limitations Fatigue May 26, 2016 2:17pm Feeding Ability Independent May 26, 2016 2:17pm Toileting Ability Independent May 26, 2016 2:17pm Grooming Ability Independent May 26, 2016 2:17pm Dressing Ability Independent May 26, 2016 2:17pm Driving Ability Independent May 26, 2016 2:17pm Housework Ability Independent May 26, 2016 2:17pm Meal Preparation Ability Independent May 26, 2016 2:17pm Stair Climbing Ability Independent May 26, 2016 2:17pm Ability to complete ADL's impeded by No change May 26, 2016 2:17pm Cognitive/Perceptual Impairments Impaired vision May 26, 2016 2:17pm Visual Assistive Devices Glasses May 25, 2016 10:59pm Preferred Method of Learning Reading Listening May 25, 2016 10:59pm Allergies, Adverse Reactions, Alerts Allergen Type Severity Reaction Status Last Updated Sulfa (Sulfonamide Antibiotics) Allergy Unknown Active 05/25/16 Immunizations Query Response on File Recorded Date/Time Hx Influenza Vaccination No 05/25/16 10:54pm Hx Pneumococcal Vaccination No 05/25/16 10:54pm Hx Influenza Vaccination No 07/21/16 10:54pm Influenza Vaccine Hx NO 05/25/16 8:19pm Vital Signs Acute Vital Signs Vital Response Date/Time Temperature (Fahrenheit) 97.8 deg F (96.8 - 99.1) 05/26/2016 4:11pm Temperature (Calculated Celsius) 36.64390 degrees C (36.0 - 37.3) 05/26/2016 4:11pm Pulse Rate (adult) 76 bpm (60 - 100) 05/26/2016 4:11pm Respiratory Rate 20 breaths/min (10 - 20) 05/26/2016 4:11pm O2 Sat by Pulse Oximetry 98 % (90 - 100) 05/26/2016 4:11pm Oxygen Delivery Method Room Air 05/26/2016 4:11pm Blood Pressure 162/98 mm Hg 05/26/2016 4:11pm Blood Pressure Source Automatic Cuff 05/26/2016 4:11pm Height (Feet) 5 feet 05/26/2016 12:56am Height (Inches) 2.00 inches 05/26/2016 12:56am Weight (Kilograms) 94.600 kg 05/26/2016 8:15am Body Mass Index (BMI) 38.0 05/25/2016 10:31pm Results Laboratory Results Test Name Result Units Flags Reference Collection Date/Time Result Date/ Time Comments White Blood Count 3.7 T/MM3 L 4.5-11.0 05/26/2016 4:16am 05/26/2016 4: 55am Red Blood Count 4.49 M/MM3 4.00-5.20 05/26/2016 4:16am 05/26/2016 4: 55am Hemoglobin 13.0 GM/DL 12-16 05/26/2016 4:1605/26/2016 4:55am Hematocrit 41.0 % 36-46 05/26/2016 4:1605/26/2016 4:55am Mean Corpuscular Volume 91.3 UM3 80-100 05/26/2016 4:1605/26/2016 4: 55am Mean Corpuscular Hemoglobin 29.0 UUG 26-34 05/26/2016 4:162015 4:55am Mean Corpuscular Hemoglobin Concent 31.7 GM/DL 31-37 05/26/2016 4:1605/26/2016 4:55am RDW Standard Deviation 43.7 FL 36.9-50.2 05/26/2016 4:05/26/2016 4 :55am Platelet Count 176 T/MM3 130-400 05/26/2016 4:05/26/2016 4:55am Mean Platelet Volume 10.9 UM3 9.4-12.4 05/26/2016 4:05/26/2016 4: 55am Neutrophils (%) (Auto) 45.7 % 33-66 05/26/2016 4:05/26/2016 4: 55am Lymphocytes (%) (Auto) 45.8 % H 23-45 05/26/2016 4:05/26/2016 4: 55am Monocytes (%) (Auto) 7.9 % 0-9.0 05/26/2016 4:05/26/2016 4:55am Eosinophils (%) (Auto) 0.3 % 0-4 05/26/2016 4:05/26/2016 4:55am Basophils (%) (Auto) 0.0 % 0-2 05/26/2016 4:05/26/2016 4:55am Immature Granulocyte % (Auto) 0.3 % 0.0-0.5 05/26/2016 4:2015 4:55am Absolute Neutrophils (auto) 1.7 T/MM3 L 1.8-7.7 05/26/2016 4:2015 4:55am Absolute Lymphocytes (auto) 1.7 T/MM3 1-4.8 05/26/2016 4:2015 4:55am Absolute Monocytes (auto) 0.3 T/MM3 0-0.8 05/26/2016 4:05/26/2016 4:55am Absolute Eosinophils (auto) 0.0 T/MM3 0-0.5 05/26/2016 4:2015 4:55am Absolute Basophils (auto) 0.0 T/MM3 0-0.2 05/26/2016 4:05/26/2016 4:55am Absolute Immature Granulocyte (auto 0.01 T/MM3 0.00-0.03 05/26/2016 4: 05/26/2016 4:55am Prothromb Time International Ratio 0.98 L 0.99-1.21 05/26/2016 4:1605/26/2016 6:18am THERAPUTIC RANGE=2.00-3.00 FOR ANTI-THROMBOSIS THERAPUTIC RANGE=2.50-3.50 FOR IMPLANTED VALVE Activated Partial Thromboplast Time 37.6 SEC H 24-36 05/26/2016 4:1605/26/2016 6:18am Icterus Index < 2 0-7 05/26/2016 4:1605/26/2016 5:05am Chemistry Specimen Hemolysis < 15 0-25 05/26/2016 4:1605/26/2016 5 :15am 0-25: Specimen Exhibited No Hemolysis. Turbidity < 20 0-20 05/26/2016 4:05/26/2016 5:05am Sodium Level 144 MEQ/L 134-144 05/26/2016 4:1605/26/2016 5:05am Potassium Level 4.0 MEQ/L 3.6-5 05/26/2016 4:1605/26/2016 5:05am Chloride Level 108 MEQ/L H 98-107 05/26/2016 4:1605/26/2016 5:05am Carbon Dioxide Level 24 MEQ/L 22-30 05/26/2016 4:05/26/2016 5: 05am Anion Gap 12 MEQ/L 5-15 05/26/2016 4:1605/26/2016 5:05am Blood Urea Nitrogen 7.0 MG/DL 7-17 05/26/2016 4:05/26/2016 5:05am Creatinine 0.9 MG/DL 0.7-1.2 05/26/2016 4:1605/26/2016 5:05am BUN/Creatinine Ratio 8 RATIO 6-26 05/26/2016 4:1605/26/2016 5:05am Glomerular Filtration Rate Calc 66 05/26/2016 4:1605/26/2016 5: 05am Glucose Level 89 MG/DL 65-110 05/26/2016 4:1605/26/2016 5:05am Calculated Osmolality 274 MOSM/KG 261-280 05/26/2016 4:1605/26/2016 5:05am Calcium Level 8.3 MG/DL D L 8.4-10.2 05/26/2016 4:05/26/2016 5:21am Phosphorus Level 4.5 MG/DL 2.5-4.5 05/26/2016 4:05/26/2016 5:05am Total Bilirubin 0.60 MG/DL 0.20-1.30 05/26/2016 4:05/26/2016 5: 05am Alkaline Phosphatase 95 U/L 38-126 05/26/2016 4:05/26/2016 5:05am Total Protein 6.5 G/DL 6.3-8.2 05/26/2016 4:05/26/2016 5:05am Albumin 3.5 G/DL 3.5-5.0 05/26/2016 4:05/26/2016 5:05am Globulin 3.0 G/DL 2.4-3.6 05/26/2016 4:05/26/2016 5:05am Albumin/Globulin Ratio 1.2 RATIO 1.1-2.2 05/26/2016 4:05/26/2016 5 :05am Aspartate Amino Transf (AST/SGOT) 62 U/L H 14-36 05/26/2016 4:05/26 5:05am Alanine Aminotransferase (ALT/SGPT) 67 U/L H 9-52 05/26/2016 4: 5:05am Troponin I < 0.012 ng/ml 0-0.12 05/26/2016 4:05/26/2016 5:15am Troponin values with a difference of 55% increase from orginal troponin value represent a true biological DELTA value. (%increase Calc=Orginal Troponin value, divided by subsequent Troponin value, multiplied by 100) C-Reactive Protein < 5.0 MG/L 0-9 05/26/2016 4:05/26/2016 5:33am Lipase 125 U/L 23-300 05/25/2016 7:41pm 05/25/2016 7:56pm Magnesium Level 1.7 MG/DL 1.6-2.3 05/26/2016 4:1605/26/2016 5:33am Ammonia 12 UMOL/L 9-33 05/26/2016 4:1605/26/2016 5:06am Plasma Lactate 0.8 MMOL/L 0.6-2.2 05/26/2016 4:16am 05/26/2016 5:07am Thyroid Stimulating Hormone (TSH) 0.98 MIU/L 0.47-4.68 05/26/2016 4: 16am 05/26/2016 5:34am Urine Collection Type CLEANCATCH-MIDSTREAM 05/25/2016 10:05/25 10:27pm Urine Color YELLOW YELLOW 05/25/2016 10:05/25/2016 10:27pm Urine Turbidity CLEAR CLEAR 05/25/2016 10:05/25/2016 10:27pm Urine Specific Peel <=1.005 L 1.015-1.025 05/25/2016 10:2015 10:27pm Urine pH 5.5 5.0-8.0 05/25/2016 10:05/25/2016 10:27pm Urine Leukocyte Esterase TRACE A NEGATIVE 05/25/2016 10:2015 10:27pm Urine Nitrite NEGATIVE NEGATIVE 05/25/2016 10:05/25/2016 10: 27pm Urine Protein NEGATIVE NEGATIVE 05/25/2016 10:05/25/2016 10: 27pm Urine Glucose (UA) NEGATIVE NEGATIVE 05/25/2016 10:05/25/2016 10 :27pm Urine Ketones NEGATIVE NEGATIVE 05/25/2016 10:05/25/2016 10: 27pm Urine Urobilinogen 0.2 EU/DL NORMAL 05/25/2016 10:05/25/2016 10: 27pm Urine Bilirubin NEGATIVE NEGATIVE 05/25/2016 10:05/25/2016 10: 27pm Urine Blood NEGATIVE NEGATIVE 05/25/2016 10:05/25/2016 10:27pm Urinalysis Comment MICROSCOPIC NOT IND. 05/25/2016 10:2015 10:27pm Gamma Glutamyl Transpeptidase 256 U/L H 3-36 05/26/2016 4:16am 2015 11:58am GGT performed at [facility] Reference Lab, [address], [place] [address] Leather Staker Guanaco Marino DO Name: SUN ALMODOVAR Unit #: [id number] : [id number] Sex: F Admit Date: 05/25/16 Loc / Svc: MED Discharge Date: DIAGNOSTIC IMAGING REPORT Report #: [id number] [facility] [place] Burks Indication: ITS.REASON: abd pain with ascites CT ABD/PELVIS W/CONTRAST ONLY: Comparison: 02/23/2016 Technique: Patient scanned from above the diaphragm to below the pubic symphysis after nonionic intravenous contrast and dose reduction imaging technology utilized. Reformatted sagittal and coronal images provided. Findings: Heart size is within normal limits. No acute findings identified in the lung bases. Liver, gallbladder, biliary tree and common bile duct are unremarkable. Spleen is at the upper range of normal but homogeneous in texture and unremarkable. Increase in both adrenal glands are unremarkable. Both kidneys excrete the contrast in a similar pattern. Slight nodularity identified on the right side but no significant mass, cyst, abnormal calcification or obstructive uropathy appreciated. Retroperitoneum was unremarkable. Marker visualized bowel is unremarkable. Rest of the pelvis showed no abnormality. No free air or free fluid seen. Patient did show moderate volume of stool in the large bowel. Next marked rotoscoliosis with degenerative disc changes with spinal stenosis and neural foraminal narrowing identified in the lumbar spine. Impression: 1. No acute abdominal pelvic findings identified. 2. Degenerative changes in the spine with spinal stenosis, neural foraminal narrowing and mild rotoscoliosis. 3. Findings were communicated to the ordering ER clinician on a callback basis by the [employer] service . Procedures No known history of procedures. Encounters Encounter Location Arrival/Admit Date Discharge/Depart Date Attending Provider Discharged Inpatient (obs) [facility] 05/25/16 9:41pm 05/26/16 7: 05pm TONI RAMÍREZ DO Registered Clinic [facility] 05/15/16 5:08pm CATHLEEN GOLDBERG APRN
--- OUTSIDE RECORDS SUMMARY | 2017-02-15 16:55 | XMS REPORT ---
Author Cathleen Dominguez [facility] eClinicalWorks Address Unknown Phone Unavailable Care Team Providers Care Qualitative Executive Researcher Name Role Phone Cathleen Das CP Unavailable Allergies No Known Allergies Problems Problem Type Condition Code Onset Dates Condition Status Assessment Chronic viral hepatitis C B18.2 Active Assessment Generalized abdominal pain R10.84 Active Problem Chronic viral hepatitis C B18.2 [...] Date End Date Status Dosage Effexor XR [facility] [address]-42 150 MG Orally Once a day May 13, 2015 1 capsule with food Zolpidem Tartrate [facility] [address]-20 10 MG Orally Once a day TAKE ONE TABLET BY MOUTH EVERY NIGHT AT BEDTIME TO LAST [address] [facility] [address]-78 7.5-200 MG Orally every 6 hrs May 26, 2016 1 tablet as needed Procedures Procedure Coding System Code Date LIVER FIBROSIS, FIBRO TEST-ACTITEST PANEL #4 CPT-4 24223 May 17, 2016 LIVER FIBROSIS, FIBRO TEST-ACTITEST PANEL #5 CPT-4 05966 May 17, 2016 LIVER FIBROSIS, FIBRO TEST-ACTITEST PANEL #3 CPT-4 38478 May 17, 2016 HEPATITIS C VIRAL LOAD (RNA) CPT-4 43569 May 17, 2016 SED RATE CPT-4 26235 May 17, 2016 LIVER FIBROSIS, FIBRO TEST-ACTITEST PANEL #6 CPT-4 80148 May 17, 2016 HEMOSURE iFOB SCREENING, IN HOUSE CPT-4 68177 May 17, 2016 LIVER FIBROSIS, FIBRO TEST-ACTITEST PANEL #2 CPT-4 73964 May 17, 2016 LIVER FIBROSIS, FIBRO TEST-ACTITEST PANEL #1 CPT-4 09260 May 17, 2016 PROTIME INR, IN HOUSE CPT-4 60166 May 17, 2016 ALPHA 1 ANTITRYPSIN PROTEOTYPE #2 CPT-4 63130 May 17, 2016 ALPHA 1 ANTITRYPSIN PROTEOTYPE #1 CPT-4 39831 May 17, 2016 COMPLETE CBC W/AUTO DIFF WBC CPT-4 41730 May 17, 2016 URINALYSIS, IN HOUSE CPT-4 44859 May 17, 2016 Results No Known Results Summary Purpose eClinicalWorks Submission
--- OUTSIDE RECORDS SUMMARY | 2017-02-15 16:56 | XMS REPORT ---
Author Author Cathleen Das [facility] e[employer] Address Unknown Phone Unavailable Care Team Providers Care Back Wedger Name Role Phone Cathleen Das CP Unavailable [...]
--- OUTSIDE RECORDS SUMMARY | 2017-02-15 16:56 | XMS REPORT ---
Author Author Cathleen Das [facility] e[employer] Address Unknown Phone Unavailable Care Team Providers Care General Forecaster Name Role Phone Cathleen Das CP Unavailable [...] Start Date End Date Status Dosage Vicoprofen [facility] [address]-17 7.5-200 MG Orally every 6 hrs Jun 24, 2016 1 tablet as needed Results No Known Results Summary Purpose eClinicalWorks Submission
--- OUTSIDE RECORDS SUMMARY | 2017-02-15 16:56 | XMS REPORT ---
Author Author Cathleen Das [facility] e[employer] Address Unknown Phone Unavailable Care Team Providers Care Acquisition Advisor Name Role Phone Cathleen Das CP Unavailable [...]
--- OUTSIDE RECORDS SUMMARY | 2017-02-15 16:56 | XMS REPORT ---
Author Author Cathleen Das [facility] eClinicalWorks Address Unknown Phone Unavailable Care Team Providers Care System Designer Name Role Phone Cathleen Das CP Unavailable [...] Date End Date Status Dosage Zolpidem Tartrate [facility] [address]-81 10 Orally Once a day TAKE ONE TABLET BY MOUTH AT BEDTIME Results No Known Results Summary Purpose eClinicalWorks Submission
--- OUTSIDE RECORDS SUMMARY | 2017-02-15 16:56 | XMS REPORT ---
Author Author Cathleen Das [facility] [employer] Address Unknown Phone Unavailable Care Team Providers Care Sales Strategy Manager Name Role Phone Cathleen Das CP Unavailable [...] End Date Status Dosage Zolpidem Tartrate [facility] [address]-45 10 MG Orally Once a day TAKE ONE TABLET BY MOUTH EVERY NIGHT AT BEDTIME TO LAST 30 DAYS Vicoprofen [facility] [address]-18 7.5-200 MG Orally every 6 hrs Jun 24, 2016 1 tablet as needed Results No Known Results Summary Purpose eClinicalWorks Submission
--- OUTSIDE RECORDS SUMMARY | 2017-02-15 16:56 | XMS REPORT ---
Author Author Chris Dupont Organization [employer] Address Unknown Phone Unavailable Care Team Providers Care Electronics Scale Tester Name Role Phone Chris Dupont CP Unavailable Allergies, Adverse Reactions, Alerts Substance Reaction Event Type Sulfa anaphylaxis Drug Allergy Problems Problem Type Condition Code Onset Dates Condition Status Assessment Generalized abdominal pain R10.84 Active Problem Other malaise and fatigue 780.79 Active Problem Other and unspecified bipolar disorders 296.89 Active Problem Chronic hepatitis C without mention of hepatic coma 070.54 Active Assessment Spasm of muscle 728.85 Active Assessment Pain in left leg M79.605 Active Problem Generalized anxiety disorder 300.02 Active Assessment Pain in thoracic spine M54.6 Active Medications Medication Code System Code Instructions Start Date End Date Status Dosage Effexor XR [facility] [address]-46 150 MG Orally Once a day May 13, 2015 1 capsule with food Vicoprofen [facility] [address]-61 7.5-200 MG Orally every 6 hrs 1 tablet as needed Zolpidem Tartrate [facility] [address]-53 10 MG Orally Once a day TAKE ONE TABLET BY MOUTH EVERY NIGHT AT BEDTIME TO LAST 30 DAYS Procedures Procedure Coding System Code Date URINALYSIS, IN HOUSE CPT-4 98609 February 18, 2016 OFFICE VISIT, EST-MOD. COMPLEXITY (25 MIN) CPT-4 99580 February 18, 2016 TEST, IN HOUSE CPT-4 80955 February 18, 2016 Vital Signs Date/Time: February 18, 2016 BMI 33.78 Index Height 65 in Weight 203 lbs Respiratory Rate 16 /min Blood Pressure Diastolic 80 mm Hg Blood Pressure Systolic 130 mm Hg Cardiac Monitoring Heart Rate 90 /min Temperature 97.7 F Oximetry 96 % Results Name Result Date Reference Range Unit Abnormality Flag In House Urinalysis, automated ----PRO trace 20160218 ----pH 5.5 20160218 ----BLO negative 20160218 ----SG >=1.030 20160218 ----KET negative 20160218 ----DONAVAN negative 20160218 ----Color dark yellow 20160218 ----URO 0.2 20160218 ----Clarity sediment 20160218 ----GLU negative 20160218 ----NIT negative 20160218 ----LITO small 20160218 In House Test, Urine ---- Test, Urine negative 20160218 Summary Purpose eClinicalWorks Submission
--- OUTSIDE RECORDS SUMMARY | 2017-02-15 16:56 | XMS REPORT ---
Author Author Irene Souza Organization [employer] Address Unknown Phone Unavailable Care Team Providers Care Market Research Associate Name Role Phone Irene Souza CP Unavailable Allergies No Known Allergies Problems Problem Type Condition Code Onset Dates Condition Status Problem Abdominal distension R14.0 Active Problem Smoking F17.200 Active Problem Chronic active hepatitis C K73.2 Active Medications No Known Medications Results No Known Results Summary Purpose eClinicalWorks Submission
--- OUTSIDE RECORDS SUMMARY | 2017-02-15 16:56 | XMS REPORT | Referral Summary ---
Author Author [facility] Organization [facility] Address Unknown Phone Unavailable Care Team Providers Care Nuclear Equipment Research Engineer Name Role Phone Nakia Aldrich Primary Care Physician [phone] Encounter VC Date(s): 04/09/15 - 04/09/15 [facility], [address] [place] [address]- Discharge Disposition: 01-Home or Self Care Attending Physician: True Aldrich MD Admitting Physician: True Aldrich MD Vital Signs Most recent to 1 oldest [Reference Range]: Temperature Tympanic 37.5 degC [36.6-38.1 degC] (04/09/15 5:09 PM) Peripheral Pulse 115 bpm Rate [60-100 bpm] *HI* (04/09/15 5:09 PM) Blood Pressure 122/72 mmHg [90-140/60-90 mmHg] (04/09/15 5:09 PM) SpO2 97 % (04/09/15 5:09 PM) Problem List Condition Effective Dates Status [...] Anxiety, # 20 tabs, 1 Refill(s), Pharmacy: [facility] # [id number] Start Date: 02/02/15 Stop Date: 04/03/15 Status: Ordered [place]rose 7.5 mg-325 mg oral tablet 1 tabs, [...] Visit Note Author: True Aldrich MD Date: 04/09/15 Assessment/Plan Acute sinusitis The overall history and exam is consistent with sinusitis. I would recommend netipot sinus 2 to 3 x a day. Mucinex is ok for the cough. If you are not improving by next week call us. Orders: amoxicillin, 1,000 mg 2 caps, Oral, BID, X 10 days, # 40 caps, 0 Refill(s), Pharmacy: [facility] #[id number], 2 caps Oral BID,x10 days
--- OUTSIDE RECORDS SUMMARY | 2017-02-15 16:56 | XMS REPORT ---
Author Author Cathleen Das [facility] eClinicalWorks Address Unknown Phone Unavailable Care Team Providers Care Organ Tuner Electronic Name Role Phone Cathleen Das CP Unavailable [...] Start Date End Date Status Dosage Lactulose [facility][NOTE 2] [address]-09 10 GM/15ML Orally BID May 22, 2016 Sep 19, 2016 1 packet mixed with 4 ounces of water Results No Known Results Summary Purpose eClinicalWorks Submission
[2017-02-15 17:15] VITALS: Ht 160 cm; Wt 101.7 kg
[2017-02-15] MEDS ORDERED: HYDR-85 PO (18:26)
[2017-02-15] MEDS ORDERED: NORMAL SALINE 1,000 ML IV ONE (18:34)
--- NOTE | 2017-02-15 18:40 | NUR ---
Note undone in EDM - 02/16/17 at 0607 by KERRIE DISCHARGE PT GIVEN INSTRUCTIONS AND COMPAZINE PREPACK RX X1, PT VERBALIZED UNDERSTANDING AND SIGNED FORM. PT LEFT ER AMBULATORY W/O ASSIST, VS CHARTED AND NO ACUTE DISTRESS.
[2017-02-15] MEDS ORDERED: FAMOTIDINE 20 MG in FAMOTIDINE 20mg IVPB 50 ML IV ONE (18:45)
[2017-02-15] MEDS ORDERED: FENTANYL 100mcg/2ml INJECTION IV ONE (18:45)
[2017-02-15] MEDS ORDERED: ONDANSETRON 4mg/2ml INJECTION IV ONE (18:45)
--- NOTE | 2017-02-15 19:00 | ERPDOC ---
Departure Disposition Decision Date: Feb 15, 2017 Disposition Decision Time: 22:53 (PRIYANK MILLER APRN) Disposition: 01 DISCHARGED HOME, SELF-CARE Impression Impression (PRIYANK MILLER APRN) Impression: Primary Impression: Abdominal pain Additional Impressions: Fatty infiltration of liver Constipation Condition: Stable Seen By: Mid-level only (PRIYANK MILLER APRN) Referrals: CATHLEEN GOLDBERG APRN (Family) Patient Instructions: Abdominal Pain (ED), Constipation (ED), Non-Alcoholic Fatty Liver Disease (ED) Problems/Meds/Labs Reviewed?: Yes Medications reviewed and manag: Yes (PRIYANK MILLER APRN) Additional Instructions: A DEFINITE SOURCE OF YOUR ABDOMINAL PAIN WAS NOT DIAGNOSED ON TODAYS VISIT. YOU DO HAVE A FATTY LIVER WHICH MAY BE CONTRIBUTING TO YOUR PAIN. YOU ALSO HAVE SIGNIFICANT CONSTIPATION THAT WILL REQUIRE INTERVENTION WITH LAXATIVES TO HELP PASS THE STOOL. FURTHER USE OF NARCOTICS FOR PAIN CONTROL WILL FURTHER CONSTIPATE YOU. CONTINUE TO TAKE THE PAIN MEDS YOU HAVE AT HOME IN ADDITION TO THE MEDS PRESCRIBED TODAY. RECOMMEND CLEAR LIQUID DIET AND ADVANCE TOLERATED . PLEASE CALL YOUR DOCTOR AT [facility] SOON POSSIBLE. YOU MAY REQUIRE ADDITIONAL TESTING SUCH AN EGD IF YOUR PAIN CONTINUES. TAKE MIRALAX TWICE A DAY. CONTINUE MAG CITRATE DAILY UNTIL YOU HAVE A BOWEL MOVEMENT. Follow up care ordered?: Yes Mental Status: Alert, Oriented (PRIYANK MILLER APRN) Scripts Sucralfate (Carafate) 1 Gm/10 Ml Oral.susp 1 G PO ACHS, #28 ML Prov: PRIYANK MILLER APRN 02/15/17 Omeprazole (Omeprazole) 10 Mg Capsule 10 MG PO BID, #30 CAP Prov: PRIYANK MILLER APRN 02/15/17 HPI - Abdominal Pain General Chief Complaint: Abdominal Pain Stated Complaint: RIGHT SIDED PAIN Time Seen by Provider: 18:40 Source: patient History/Exam Limitations: no limitations (PRIYANK MILLER APRN) Time Seen by Provider: 18:30 (GRAYSON FRANCIS DO) HPI - Abdominal Pain Initial Comments Patient presents to the ED with reports of epigastric and right UA pain that radiates into the back. States pain has been constant for 2 weeks. Patient has a history of Hep C which she states is in remission since receiving Harvoni treatments through [facility] in July. Patient states that she has not had this type of pain before, however prior hospitalization records indicate that she was admitted in May of 2016 for intractable epigastric and Right UQ pain. This was however, before treatment for her Hepatitis C in July. Sun is a patient of Cathleen Goldberg at [facility] and did notify them today and it was recommended that she come to the ER. Upon exam, patient is pacing in the room and does appear very uncomfortable. She is also very anxious but cooperative. Occurred At: home Onset: Gradual Duration: other (2 weeks ) Pain Scale: Now & Worst: 10/10 Quality: sharpness, stabbing Location: RUQ, epigastric Radiation: back 1 - tenderness Activities at Onset: none Associated Symptoms: back pain, nausea/vomiting (nausea; no vomiting ), DENIES : chest pain Hx of Similar Symptoms: Yes (PRIYANK MILLER APRN) Allergies: Coded Allergies: Sulfa (Sulfonamide Antibiotics) (Verified Allergy, Unknown, 02/15/17) Past History Past Medical History GI: constipation Infectious: hepatitis C (states remission following Harvoni administration in July 2016 ) Psychological: anxiety (PRIYANK MILLER APRN) Surgical History Denies Surgeries (PRIAYNK MILLER APRN) Vaccines Hx Influenza Vaccination: No Hx Pneumococcal Vaccination: No (PRIYANK MILLER APRN) Social History Marital Status: Sexuality: male partner Housing: house Household Members: spouse (PRIYANK MILLER APRN) Review of Systems Constitutional Constitutional: appetite decrease, see HPI, DENIES: chills, dizziness, fever ( PRIYANK MILLER APRN) Eyes General: DENIES: burning, itching, pain Lids/Accessories: DENIES: swelling (PRIYANK MILLER APRN) ENMT Ears: DENIES: pain Hearing: DENIES: tinnitus Balance: DENIES: vertigo Sinuses: DENIES: congestion, rhinorrhea Mouth/Throat: DENIES: painful swallowing, scratchy throat, sore throat (PRIYANK MILLER APRN) Cardiovascular Cardiac: DENIES: chest pain, orthopnea Rhythm/Rate: DENIES: irregular beat, tachycardia (PRIYANK MILLER APRN) Pulmonary Respiratory: DENIES: cough, dyspnea, pleuritic chest pain (PRIYANK MILLER APRN) GI Upper Abdomen: nausea, pain, see HPI, DENIES: vomiting Lower Abdomen: constipation, pain, see HPI, DENIES: diarrhea (PRIYANK MILLER APRN) General: see HPI, DENIES: burning, dysuria, frequency, urgency (PRIYANK MILLER APRN) Musculoskeletal General: DENIES: cramps, pain, weakness (PRIYANK MILLER APRN) Integumentary Skin: DENIES: itching, rash (PRIYANK MILLER APRN) Neurological General: DENIES: headache (PRIYANK MILLER APRN) Psychiatric Psychiatric: anxiety, nervousness (PRIYANK MILLER APRN) All other Systems All Other Systems: Reviewed and Negative (PRIYANK MILLER APRN) Physical Exam General General Nourishment: well nourished, well developed, appears stated age, adult , obese, acute distress (due to abdominal pain ) General Body Habitus: well groomed (PRIYANK MILLER APRN) Vitals and Pain First Documented Vital Signs Date Time Temp Pulse Resp B/P Pulse Ox O2 Delivery O2 Flow Rate FiO2 02/15/17 17:15 98.2 95 20 178/90 97 Room Air ( DO) Vitals and Pain Weight: Kilograms: 101.700 Height (feet): 5 Height (inches): 3.00 Triage Pain Scale: (PRIYANK MILLER APRN) Normal Exams: Head: Normocephalic w/o trauma Eyes: Pupils are PERRLA w/ EOMI, No scleral icterus, irritation, or foreign bodies noted ENMT: No facial trauma, nasal exudates, pharyngeal erythema, or exudates are noted Dental: No fractured, loose, or missing teeth noted Neck: Full range of motion, without adenopathy, JVD, bruits or thyromegaly Chest/Resp: Clear all fishman, with good airflow, and symmetry bilaterally CV: Regular rate and rhythm, without murmur or gallop, Pulses 2+ all extremities, capillary refill, <2 seconds all ext., no pedal edema noted Lymphatic: No lymphadenopathy, or lymphedema noted Musculoskeletal: No tenderness, or deformity noted, good range of motion, all extremities Integumentary: No rashes, hives, or bruising noted, hair and nails, without abnormality Neurologic: Patient is alert, and oriented, cranial nerves, motor/sensory/ cerebellar, exams w/o gross deficits, to observation Psychiatric: Patient exhibits, appropriate attention, emotion and affect (PRIYANK MILLER APRN) Abdomen (brief) Abdominal Brief: FOUND: bowel normo active x4, distended, tender (epigastric, right UQ), NOT FOUND: soft (slightly firm ) (PRIYANK MILLER APRN) Differential Diagnoses Considering: Acute AK, Aortic Dissection, Biliary Colic, Bowel Obstruction, Cholecystitis, Constipation, Diverticulitis, Gastroenteritis, GERD, GI Bleed, IBS, Ileus, Neoplasm, Pancreatitis, Pneumonia, Ulcerative Colitis, UTI, Volvulus (PRIYANK MILLER APRN) Progress Results/Orders Medications Current ED Medications Sodium Chloride (Normal Saline IV) 1,000 ml @ 1,000 mls/hr Q1H ONCE IV Last administered on 02/15/17 19:00; Start 02/15/17 at 18:34; Stop 02/15/17 at 19:33 ; Status DC Fentanyl (Fentanyl) 75 mcg O ONCE IV Last administered on 02/15/17 19:04; Start 02/15/17 at 18:45; Stop 02/15/17 at 18:46; Status DC Ondansetron HCl 4 mg 4 mg O ONCE IV Last administered on 02/15/17 19:02; Start 02/15/17 at 18:45; Stop 02/15/17 at 18:46; Status DC Famotidine/ Famotidine (PEPCID 20 mg INJ./PEPCID 20mg in NS 50ml) 52 ml @ 100 mls/hr O ONCE IV Last administered on 02/15/17 19:07; Start 02/15/17 at 18:45 ; Stop 02/15/17 at 19:16; Status DC Hydromorphone HCl (Dilaudid) 1 mg O ONCE IV Last administered on 02/15/17 19: 34; Start 02/15/17 at 19:30; Stop 02/16/17 at 06:07; Status DC Iohexol 1 bottle 1 bottle STK-MED ONCE .ROUTE ; Start 02/15/17 at 21:46; Stop at 21:47; Status DC Sodium Chloride (NS) 100 ml @ As Directed STK-MED ONCE .ROUTE ; Start 02/15/17 at 21:46; Stop 02/15/17 at 21:47; Status DC Sodium Chloride (Iv Flush) 10 ml STK-MED ONCE .ROUTE ; Start 02/15/17 at 21:46; Stop 02/15/17 at 21:47; Status DC Hydromorphone HCl (Dilaudid) 1 mg O ONCE IV Last administered on 02/15/17 21: 40; Start 02/15/17 at 21:30; Stop 02/15/17 at 21:54; Status DC Pharmacy Profile Note (/Maalox/ Lidocaine Soln) 30 ml O ONCE PO Last administered on 02/15/17 23:45; Start 02/15/17 at 23:00; Stop 02/15/17 at 23:01 ; Status DC Prochlorperazine Edisylate (Compazine) 10 mg O ONCE IV Last administered on 23:46; Start 02/15/17 at 23:00; Stop 02/15/17 at 23:01; Status DC Prochlorperazine Maleate (COMPAZINE (PrePack)) 1 pack O ONCE SENT HOME Last administered on 02/15/17 23:46; Start 02/15/17 at 23:00; Stop 02/16/17 at 06:07 ; Status DC (MARCH,GRAYSON M DO) Progress Progress 2030: Patient has required 75 mcg of fentanyl with moderate but brief pain relief and then dilaudid 1 mg IV for return of pain. Lipase is mildly elevated at 385; LFT unremarkable. Pain is noted to be RUQ and epigastric; patient still has her gallbladder. Will obtain gallbladder Sono. 2114: Gallbladder sonogram did not indicate cholelithiasis; positive for fatty liver/possibly cirrhosis. Continues to complain of significant pain and bloating; Abdomen/pelvic CT scan ordered. 2244: CT scan of abdomen and pelvis negative for any etiology of source of abdominal pain. There is evidence of diffuse fatty liver infiltration in addition to constipation. (PRIYANK MILLER APRN) EKG EKG : Rate: 60-100 Rhythm: sinus Frederick: normal QRS: normal Intervals: normal ST/T: normal Interpreted by: signing physician (Dr Francis ) (PRIYANK MILLER APRN) PRIYANK MILLER APRN Feb 15, 2017 19:00 GRAYSON FRANCIS DO Feb 19, 2017 05:26 Prochlorperazine PHA 02/15/17 Logged (Prepack) (Compazine 23:00 Lab Results Laboratory Tests Test 02/15/17 19:27 White Blood Count 6.8T/MM3 Red Blood Count 4.58M/MM3 Hemoglobin 13.4GM/DL Hematocrit 41.0% Mean Corpuscular Volume 89.5UM3 Mean Corpuscular Hemoglobin 29.3UUG Mean Corpuscular Hemoglobin Concent 32.7GM/DL RDW Standard Deviation 41.7FL Platelet Count 259T/MM3 Mean Platelet Volume 10.2UM3 Immature Granulocyte % (Auto) 0.3% Neutrophils (%) (Auto) 52.4% Lymphocytes (%) (Auto) 36.7% Monocytes (%) (Auto) 7.5% Eosinophils (%) (Auto) 2.7% Basophils (%) (Auto) 0.4% Absolute Immature Granulocyte (auto 0.02T/MM3 Absolute Neutrophils (auto) 3.5T/MM3 Absolute Lymphocytes (auto) 2.5T/MM3 Absolute Monocytes (auto) 0.5T/MM3 Absolute Eosinophils (auto) 0.2T/MM3 Absolute Basophils (auto) 0.0T/MM3 Turbidity < 20 Sodium Level 144MEQ/L Potassium Level 3.9MEQ/L Chloride Level 106MEQ/L Carbon Dioxide Level 22MEQ/L Anion Gap 16MEQ/L Blood Urea Nitrogen 11.0MG/DL Creatinine 1.2MG/DL Glomerular Filtration Rate Calc 47 BUN/Creatinine Ratio 9RATIO Glucose Level 112MG/DL Calculated Osmolality 277MOSM/KG Calcium Level 8.8MG/DL Total Bilirubin 0.50MG/DL Icterus Index < 2 Aspartate Amino Transf (AST/SGOT) 36U/L Alanine Aminotransferase (ALT/SGPT) 42U/L Alkaline Phosphatase 85U/L Troponin I < 0.012ng/ml Total Protein 7.7G/DL Albumin 4.3G/DL Globulin 3.4G/DL Albumin/Globulin Ratio 1.3RATIO Lipase 385U/L Chemistry Specimen Hemolysis < 15 Medications Current ED Medications Sodium Chloride (Normal Saline IV) 1,000 ml @ 1,000 mls/hr Q1H ONCE IV ; Start 02/15/17 at 18:34; Stop 02/15/17 at 19:33; Status DC Fentanyl (Fentanyl) 75 mcg O ONCE IV Last administered on 02/15/17 19:04; Start 02/15/17 at 18:45; Stop 02/15/17 at 18:46; Status DC Ondansetron HCl 4 mg 4 mg O ONCE IV Last administered on 02/15/17 19:02; Start 02/15/17 at 18:45; Stop 02/15/17 at 18:46; Status DC Famotidine/ Famotidine (PEPCID 20 mg INJ./PEPCID 20mg in NS 50ml) 52 ml @ 100 mls/hr O ONCE IV Last administered on 02/15/17 19:07; Start 02/15/17 at 18:45 ; Stop 02/15/17 at 19:16; Status DC Hydromorphone HCl (Dilaudid) 1 mg O ONCE IV Last administered on 02/15/17 19: 34; Start 02/15/17 at 19:30; Stop 02/15/17 at 19:31; Status UNV Iohexol 1 bottle 1 bottle STK-MED ONCE .ROUTE ; Start 02/15/17 at 21:46; Stop at 21:47; Status DC Sodium Chloride (NS) 100 ml @ As Directed STK-MED ONCE .ROUTE ; Start 02/15/17 at 21:46; Stop 02/15/17 at 21:47; Status DC Sodium Chloride (Iv Flush) 10 ml STK-MED ONCE .ROUTE ; Start 02/15/17 at 21:46; Stop 02/15/17 at 21:47; Status DC Hydromorphone HCl (Dilaudid) 1 mg O ONCE IV Last administered on 02/15/17 21: 40; Start 02/15/17 at 21:30; Stop 02/15/17 at 21:54; Status DC Pharmacy Profile Note (/Maalox/ Lidocaine Soln) 30 ml O ONCE PO Last administered on 02/15/17 23:45; Start 02/15/17 at 23:00; Stop 02/15/17 at 23:01 ; Status DC Prochlorperazine Edisylate (Compazine) 10 mg O ONCE IV Last administered on 23:46; Start 02/15/17 at 23:00; Stop 02/15/17 at 23:01; Status DC Prochlorperazine Maleate (COMPAZINE (PrePack)) 1 pack O ONCE SENT HOME Last administered on 02/15/17 23:46; Start 02/15/17 at 23:00; Stop 02/15/17 at 23:01 ; Status UNV Progress Progress 2030: Patient has required 75 mcg of fentanyl with moderate but brief pain relief and then dilaudid 1 mg IV for return of pain. Lipase is mildly elevated at 385; LFT unremarkable. Pain is noted to be RUQ and epigastric; patient still has her gallbladder. Will obtain gallbladder Sono. 2114: Gallbladder sonogram did not indicate cholelithiasis; positive for fatty liver/possibly cirrhosis. Continues to complain of significant pain and bloating; Abdomen/pelvic CT scan ordered. 2244: CT scan of abdomen and pelvis negative for any etiology of source of abdominal pain. There is evidence of diffuse fatty liver infiltration in addition to constipation. EKG EKG : Rate: 60-100 Rhythm: sinus Frederick: normal QRS: normal Intervals: normal ST/T: normal Interpreted by: signing physician (PRIYANK Edwards APRN Feb 15, 2017 19:00
[2017-02-15] MEDS ORDERED: HYDROMORPHONE 2mg/ml INJECTION IV ONE ×2 (19:30→21:30)
[2017-02-15 19:33] LABS: BASOPHILS % (AUTO) 0.4 % (0-2); EOSINOPHILS # (AUTO) 0.2 T/MM3 (0-0.5); EOSINOPHILS % (AUTO) 2.7 % (0-4); HGB - HEMOGLOBIN 13.4 GM/DL (12-16); IMMATURE GRANULOCYTE # (AUTO) 0.02 T/MM3 (0.00-0.03); IMMATURE GRANULOCYTE % (AUTO) 0.3 % (0.0-0.5); LYMPHOCYTES # (AUTO) 2.5 T/MM3 (1-4.8); LYMPHOCYTES % (AUTO) 36.7 % (23-45); MEAN CORPUSCULAR HGB 29.3 UUG (26-34); MEAN CORPUSCULAR HGB CONC(MCHC 32.7 GM/DL (31-37); MEAN CORPUSCULAR VOLUME 89.5 UM3 (80-100); MEAN PLATELET VOLUME 10.2 UM3 (9.4-12.4); MONOCYTES # (AUTO) 0.5 T/MM3 (0-0.8); MONOCYTES % (AUTO) 7.5 % (0-9.0); NEUTROPHILS #(AUTO)-ABSOLUTE 3.5 T/MM3 (1.8-7.7); NEUTROPHILS % (AUTO) 52.4 % (33-66); RED BLOOD COUNT 4.58 M/MM3 (4.00-5.20); WBC - WHITE BLOOD COUNT 6.8 T/MM3 (4.5-11.0)
[2017-02-15 19:44] LABS: ALBUMIN 4.3 G/DL (3.5-5.0); ALBUMIN/GLOBULIN RATIO 1.3 RATIO (1.1-2.2); ALKALINE PHOSPHATASE 85 U/L (38-126); ALT (SGPT) 42 U/L (9-52); ANION GAP 16 MEQ/L (5-15); AST (SGOT) 36 U/L (14-36); BUN/CREATININE RATIO 9 RATIO (6-26); CALCIUM 8.8 MG/DL (8.4-10.2); CHLORIDE 106 MEQ/L (98-107); CO2 - CARBON DIOXIDE 22 MEQ/L (22-30); CREATININE 1.2 MG/DL (0.7-1.2); GLOMERULAR FILTRATION RATE 47; GLUCOSE 112 MG/DL (65-110); LIPASE 385 U/L (23-300); POTASSIUM 3.9 MEQ/L (3.6-5); SODIUM 144 MEQ/L (134-144); TOTAL PROTEIN 7.7 G/DL (6.3-8.2)
--- NOTE | 2017-02-15 20:15 | NUR ---
SONO SONO IN ROOM.
--- NOTE | 2017-02-15 20:45 | NUR ---
SONO SONO GONE FROM ROOM.
[2017-02-15] MEDS ORDERED: SALINE FLUSH 10ml SYRINGE ONE (21:46)
[2017-02-15] MEDS ORDERED: NORMAL SALINE 100 ML ONE (21:46)
[2017-02-15] MEDS ORDERED: IOHEXOL 300 MG/ML 100ml INJECTION ONE (21:46)
--- NOTE | 2017-02-15 21:52 | NUR ---
XRAY PT GONE TO XRAY
--- NOTE | 2017-02-15 22:10 | NUR ---
XRAY PT BACK FROM XRAY VIA CART.
[2017-02-15] MEDS ORDERED: PROCHLORPERAZINE 10mg/2ml INJECTION IV ONE (23:00)
[2017-02-15] MEDS ORDERED: SUCR1ORA3 PO (23:00)
[2017-02-15] MEDS ORDERED: OMEP10CA4 PO (23:00)
[2017-02-15] MEDS ORDERED: PROCHLORPERAZINE 10MG (PrePack) SENT HOME ONE (23:00)
[2017-02-15] MEDS ORDERED: G.I. COCKTAIL 30ml PO ONE (23:00)
--- NOTE | 2017-02-15 23:25 | NUR ---
PO MED GI COCKTAIL GIVEN CHARTED.
[2017-02-15 23:30] VITALS: BP 146/87; PULSE 81; RESP 20; TEMP 98.2; O2SAT 93
--- NOTE | 2017-02-15 23:30 | NUR ---
DISCHARGE PT GIVEN INSTRUCTIONS AND COMPAZINE PREPACK RX X1, PT VERBALIZED UNDERSTANDING AND SIGNED FORM. PT LEFT ER AMBULATORY W/O ASSIST, VS CHARTED AND NO ACUTE DISTRESS.
--- NOTE | 2017-02-16 07:48 | DI ---
Indication: ITS.REASON: abd pain, distension, normal gallbladder PROCEDURE: CT ABD/PELVIS W/CONTRAST ONLY: Encounter: Initial Comparison: May 25, 2016 Technique: Axial CT images were performed through the abdomen and pelvis after the administration of intravenous contrast. Coronal and sagittal two-dimensional reformats. Automated Exposure Control and Iterative Reconstruction dose reducing techniques were utilized. Contrast: Omnipaque 300 100 mL Findings: Mild atelectasis in the lung bases. The liver is decreased in attenuation relative to the spleen consistent with fatty infiltration. No enhancing liver mass or bile duct dilatation. The gallbladder, spleen, pancreas, adrenal glands and kidneys are normal. No abdominal or pelvic adenopathy. Bladder is normal. Uterus is unremarkable. No free fluid. No evidence of a bowel obstruction. The appendix is normal. Bone windows show no acute findings. Impression: No acute disease process seen. Hepatic steatosis. There is a preliminary report by [employer]. .
--- NOTE | 2017-02-16 07:57 | DI ---
Indication: ITS.REASON: right upper quad pain PROCEDURE: US GALLBLADDER: Encounter: Initial Comparison: January 28, [address] abdomen and pelvis dated February 15, 2017 Technique: Grayscale and color Doppler sonographic imaging of the right upper quadrant of the abdomen was performed. Findings: Hepatic parenchyma is echogenic without evidence for focal mass. The gallbladder is normal. There is no wall thickening, pericholecystic fluid, sonographic Munoz's sign or cholelithiasis. Both the intra and extrahepatic biliary system are of normal caliber with the common duct measuring 2 mm in dimension. Visualized portions of the head and body of the pancreas are unremarkable. The right kidney is present without collecting system dilatation. The right kidney measures 9.1 cm in length. Impression: Normal gallbladder. Hepatic steatosis. There is a preliminary report by [employer]. .
== END 2017-02-15 23:30 | disposition home or self-care (01) ==
LOC: ED 16:50
DX: R10.11 Right upper quadrant pain (principal); R10.13 Epigastric pain; K76.0 Fatty (change of) liver, not elsewhere classified; K59.00 Constipation, unspecified
CPT/HCPCS: 36415; 80053; 83690; 84484; 85025; 93005